=== PATIENT | female | born 1970 | race Caucasian/White ===

== ENCOUNTER 2020-09-05 14:59 | Emergency (ER) | payer OTHER ==
[2020-09-05 15:36] LABS: BASOPHILS # (AUTO) 0.1 10^3/uL (0.0-0.1); BASOPHILS % (AUTO) 0.4 %; EOSINOPHILS % (AUTO) 0.3 %; HCT - HEMATOCRIT 41.5 % (37.0-47.0); HGB - HEMOGLOBIN 14.5 g/dL (12.0-16.0); LYMPHOCYTES # (AUTO) 0.9 10^3/uL (1.5-3.5); LYMPHOCYTES % (AUTO) 7.9 %; MEAN CORPUSCULAR HEMOGLOBIN 31.7 pg (27.0-31.0); MEAN CORPUSCULAR HGB CONC 34.9 g/dL (32.0-36.0); MEAN CORPUSCULAR VOLUME 90.8 fL (81.0-99.0); MONOCYTES # (AUTO) 0.5 10^3/uL (0.0-1.0); MONOCYTES % (AUTO) 4.3 %; NEUTROPHILS # (AUTO) 10.4 10^3/uL (1.5-6.6); NEUTROPHILS % (AUTO) 86.8 %; PLT - PLATELET COUNT 309 10^3/uL (130-450); RED BLOOD COUNT 4.57 10^6/uL (4.20-5.40); RED CELL DISTRIBUTION WIDTH 11.9 % (12.0-15.0)
[2020-09-05 15:55] LABS: ALBUMIN 4.6 g/dL (3.2-5.5); ALBUMIN/GLOBULIN RATIO 1.1 (1.0-2.2); BILIRUBIN,TOTAL 0.8 mg/dL (0.2-1.0); CALCIUM 9.9 mg/dL (8.5-10.3); CREATININE 0.9 mg/dL (0.4-1.0); POTASSIUM 3.7 mmol/L (3.5-5.0); TOTAL PROTEIN 8.8 g/dL (6.7-8.2)
[2020-09-05 15:59] LABS: BILIRUBIN,URINE NEGATIVE (NEGATIVE); GLUCOSE, URINE (UA) NEGATIVE (NEGATIVE); KETONES,URINE (UA) NEGATIVE (NEGATIVE); LEUKOCYTE ESTERASE, URINE SMALL (NEGATIVE); NITRITE,URINE NEGATIVE (NEGATIVE); OCCULT BLOOD,URINE NEGATIVE (NEGATIVE); PH,URINE 7.5 PH (5.0-7.5); PROTEIN,URINE NEGATIVE (NEGATIVE); UROBILINOGEN,URINE 0.2 (NORMAL) E.U./dL (NORMAL)
[2020-09-05 16:09] LABS: CLARITY,URINE CLEAR (CLEAR)
[2020-09-05] MEDS ORDERED: fentaNYL 100 MCG/2 ML VIAL IVP STA (16:09)
[2020-09-05] MEDS ORDERED: ONDANSETRON 4 MG/2 ML VIAL IVP STA (16:10)
[2020-09-05] MEDS ORDERED: IOPAMIDOL-300 100 ML VIAL ONE (16:12)
--- NOTE | 2020-09-05 16:18 | ED Physician Documentation ---
PD HPI ABD PAIN - Stated complaint Stated Complaint: ABD PX - Chief complaint Chief Complaint: Abd Pain - History obtained from History obtained from: Patient - History of Present Illness Pain level max: 8 Pain level now: 8 Quality: Aching, Pain Location: RUQ, Epigastric, LUQ Radiation: No: Chest, , Lower back, Left flank, Left shoulder, Right flank, Right shoulder, Upper back Improved by: Other (Nothing) Worsened by: Eating Associated symptoms: Nausea. No: Fever, Vomiting, Hematemesis, Diarrhea, Constipation, Melena, Hematochezia, Dysuria - Additional information Additional information: 50-year-old female presents to the emergency department epigastric and right upper quadrant pain intermittently for the past year or so. Increasing frequency over the past week. She states normally lasts for about 2 hours. Worse with eating and drinking. Nothing makes it better. She states that she has not had any diarrhea or constipation. She states that she believes that she may have had a parasitic infection in her intestine several years ago, but was not tested or treated. She is concerned this could be causing an issue as well. No fevers. No chills. No history of abdominal surgeries. Review of Systems Ten Systems: 10 systems reviewed and negative Constitutional: denies: Fever, Chills Throat: denies: Sore throat Cardiac: denies: Chest pain / pressure, Palpitations Respiratory: denies: Cough GI: denies: Vomiting, Hematemesis, Bloody / black stool : denies: Dysuria Skin: denies: Rash Musculoskeletal: denies: Neck pain, Back pain Neurologic: denies: Headache PD PAST MEDICAL HISTORY - Past Medical History Past Medical History: No - Past Surgical History Past Surgical History: No - Present Medications Home Medications: Ambulatory Orders Medication Instructions Recorded Confirmed Ondansetron Odt [Zofran] 4 mg TL Q6H PRN #10 tablet 09/05/20 Oxycodone HCl/Acetaminophen 1 - 2 each PO Q6H PRN #14 tablet 09/05/20 [Percocet 5-325 mg Tablet] - Allergies Allergies/Adverse Reactions: Allergies Allergy/AdvReac Type Severity Reaction Status Date / Time No Known Drug Allergies Allergy Verified 09/05/20 15:13 - Living Situation Living Situation: reports: With family Living Arrangement: reports: At home - Social History Does the pt smoke?: No Does the pt drink ETOH?: No Does the pt have substance abuse?: No PD ED PE NORMAL - Vitals Vital signs reviewed: Yes - General General: Alert and oriented X 3, No acute distress, Well developed/nourished - HEENT HEENT: PERRL, Moist mucous membranes - Neck Neck: Supple, no meningeal sign - Cardiac Cardiac: RRR, Strong equal pulses - Respiratory Respiratory: No respiratory distress, Clear bilaterally - Abdomen Abdomen: Soft, Non distended, Other (Tender to palpation epigastric, left upper quadrant and right upper quadrant. Negative Aguayo sign) - Back Back: No CVA TTP - Derm Derm: Warm and dry - Extremities Extremities: No edema - Neuro Neuro: Alert and oriented X 3 - Psych Psych: Normal mood, Normal affect Results - Vitals Vitals: Vital Signs - 24 hr 09/05/20 09/05/20 09/05/20 15:06 17:19 17:30 Temperature 36.6 C Heart Rate 95 72 76 Respiratory 22 16 16 Rate Blood Pressure 131/82 H 123/82 H 113/74 O2 Saturation 100 100 100 09/05/20 09/05/20 18:00 18:30 Temperature Heart Rate 76 73 Respiratory 16 Rate Blood Pressure 112/80 111/83 H O2 Saturation 99 Oxygen O2 Source Room air - Labs Labs: Laboratory Tests 09/05/20 09/05/20 09/05/20 15:29 15:29 15:29 WBC 12.0 H RBC 4.57 Hgb 14.5 Hct 41.5 MCV 90.8 MCH 31.7 H MCHC 34.9 RDW 11.9 L Plt Count 309 MPV 10.0 Neut # (Auto) 10.4 H Lymph # (Auto) 0.9 L [place] # (Auto) 0.5 Eos # (Auto) 0.0 Baso # (Auto) 0.1 Absolute Nucleated RBC 0.00 Nucleated RBC % 0.0 Sodium 140 Potassium 3.7 Chloride 104 Carbon Dioxide 27 Anion Gap 9.0 BUN 15 Creatinine 0.9 Estimated GFR (MDRD) 67 L Glucose 129 H Calcium 9.9 Total Bilirubin 0.8 AST 400 H ALT 238 H Alkaline Phosphatase 143 H Total Protein 8.8 H Albumin 4.6 Globulin 4.2 Albumin/Globulin Ratio 1.1 Lipase 32 Urine Color YELLOW Urine Clarity CLEAR Urine pH 7.5 Ur Specific Garner <=1.005 Urine Protein NEGATIVE Urine Glucose (UA) NEGATIVE Urine Ketones NEGATIVE Urine Occult Blood NEGATIVE Urine Nitrite NEGATIVE Urine Bilirubin NEGATIVE Urine Urobilinogen 0.2 (NORMAL) Ur Leukocyte Esterase SMALL H Urine RBC 0-5 Urine WBC 4-5 Ur Squamous Epith Cells MOD Squamous H Urine Bacteria None Seen Ur Microscopic Review INDICATED Urine Culture Comments NOT INDICATED - Rads (name of study) CT abd/pelvis Radiology: Prelim report reviewed, EMP read contemporaneously, See rad report RUQ US Radiology: Prelim report reviewed, EMP read contemporaneously, See rad report PD MEDICAL DECISION MAKING - ED course Complexity details: reviewed results, re-evaluated patient, considered differential, d/w patient ED course: 50-year-old female with cholelithiasis, but no signs of acute cholecystitis. Mild elevation of her LFTs. Discussed the case with Dr. Dixon, general surgery on-call, recommends pain control and follow-up in the office on Tuesday for likely surgery next Tuesday. Patient is comfortable with this plan and does not want to go to surgery tonight. She is comfortable going home. Abdomen is soft, minimally tender on serial exam. Tolerating p.o. without difficulty. Pain well controlled. No fever. Patient was counseled at length about return precautions including but not limited to uncontrolled pain, vomiting and/or fever. Patient counseled regarding signs and symptoms for which I believe and urgent re- evaluation would be necessary. Patient with good understanding of and agreement to plan and is comfortable going home at this time This document was made in part using voice recognition software. While efforts are made to proofread this document, sound alike and grammatical errors may occur. CT SCAN IMPRESSION: Cholelithiasis. Tiny fat-containing helical hernia. Diastasis rectus. RUQ US: Cholelithiasis without signs of acute cholecystitis. Departure - Departure Disposition: Home, Self Care Clinical Impression: Biliary colic Condition: Good Instructions: ED Gallstone W Biliary Colic Follow-Up: TROY MEYER ARNP [Primary Care Provider] - Justino Dixon MD [Provider Admit Priv/Credential] - Prescriptions: Oxycodone HCl/Acetaminophen [Percocet 5-325 mg Tablet] 1 - 2 each PO Q6H PRN #14 tablet PRN Reason: pain Ondansetron Odt [Zofran] 4 mg TL Q6H PRN #10 tablet PRN Reason: Nausea / Vomiting Comments: I spoke with Dr. Dixon and reviewed all of your imaging findings today. He feels that you are safe to go home at this time. You are to return to the emergency department if your symptoms worsen, such as increasing pain, vomiting or fevers. Call your doctor on Tuesday and have them send a referral to Dr. Dixon office. He can see you on Tuesday and likely schedule the surgery for Tuesday. Eat a very low-fat diet. This will likely help your symptoms as well. Do not drink alcohol or drive while on narcotic pain medicine. Note that many narcotic pain relievers also contain tylenol/acetaminophen. Please ensure that your total dose of acetaminophen from all sources does not exceed 3 grams (3000mg) per day. You may constipated on this medication, take a stool softener such as "Colace" twice a day while you are on it. Also recommend a [id number]-[id number] laxative such as senna or MiraLAX any day that you do not have a bowel movement. If you received narcotic pain medication in the emergency department, do not drive or operate machinery for the next 24 hours. Discharge Date/Time: 09/05/20 18:50
[2020-09-05 16:22] LABS: BACTERIA,URINE None Seen /HPF (None Seen); RBC,URINE 0-5 /HPF (0-5); SQUAMOUS EPITHELIAL CELL,UR MOD Squamous (<= Few)
[2020-09-05] MEDS ORDERED: IOPAMIDOL-300 100 ML VIAL IVP ONE (16:34)
--- NOTE | 2020-09-05 16:43 | CT Report ---
PROCEDURE: Abdomen/Pelvis W INDICATIONS: Diffuse abdominal pain CONTRAST: IV CONTRAST: Isovue 300 ml: 100 PO CONTRAST: *NO PO CONTRAST TECHNIQUE: After the administration of intravenous contrast, 5 mm thick sections acquired from the diaphragms t o the symphysis. 5 mm thick coronal and sagittal reformats were acquired. For radiation dose reduct ion, the following was used: automated exposure control, adjustment of mA and/or kV according to pat ient size. COMPARISON: None. FINDINGS: Image quality: Excellent. ABDOMEN: Lung bases: Lung bases are clear. Heart size is normal. Solid organs: Normal appearance of the liver, spleen, pancreas, adrenal glands, and kidneys. Gallblad gilda contains numerous partially calcified gallstones (approximately 7-10). No gallbladder wall thick ening or pericholecystic fluid. No biliary tract ductal dilatation. Normal caliber pancreatic duct. Peritoneum and bowel: Bowel loops demonstrate normal wall thickness and caliber. No free fluid or a ir. Nodes and vessels: No retroperitoneal or mesenteric adenopathy by size criteria. Aorta and inferior vena cava are normal in size. Miscellaneous: Tiny fat-containing umbilical hernia. Diastasis rectus above the level of the umbilicu s, with the medial margins of the mid rectus abdominis muscle bellies by approximately 2.5 cm. PELVIS: Genitourinary: Bladder wall thickness is normal. Miscellaneous: No inguinal hernias or adenopathy. Bones: No suspicious bony lesions. No vertebral body compression fractures. IMPRESSION: Cholelithiasis. Tiny fat-containing helical hernia. Diastasis rectus. Reviewed by: Darren Dozier MD on 09/05/2020 4:41 PM PDT Approved by: Darren Dozier MD on 09/05/2020 4:41 PM PDT Station ID: [id number]
[2020-09-05] MEDS ORDERED: LORazepam 2 MG/ML VIAL IVP STA (17:53)
--- NOTE | 2020-09-05 18:41 | Ultrasound Report ---
PROCEDURE: Abdomen Limited INDICATIONS: RUQ pain, elevated LFT TECHNIQUE: Real-time focused scanning was performed of the abdomen, with image documentation. COMPARISON: CT abdomen/pelvis 09/05/2020. FINDINGS: Liver: Liver is normal in size and echogenicity. Gallbladder: Multiple shadowing gallstones are seen throughout the gallbladder. There is no significa nt gallbladder wall thickening. No pericholecystic fluid is seen. Sonographic Aguayo sign is negative . Biliary ducts: Intrahepatic bile ducts are non-dilated. Extrahepatic bile duct caliber measures 4 m m. Normal is 6-7 mm or less in diameter, or 10 mm or less post-cholecystectomy. Pancreas: The pancreas is not well-visualized due to overlying bowel gas. Kidneys: Kidneys are normal in size and echotexture. Right kidney measures 12.7 cm long. No nephrol ithiasis. Mildly prominent extrarenal pelvis is seen within the calyceal diverticulum ablation, most likely a normal variant. No solid masses. IVC: Intrahepatic inferior vena cava is patent. Miscellaneous: No free right upper quadrant fluid. IMPRESSION: Cholelithiasis without signs of acute cholecystitis. Findings were conveyed to the ordering physician, Dr. Urias, by the truck greaser at the time of the e xam. Reviewed by: Michael Nixon MD on 09/05/2020 6:40 PM PDT Approved by: Michael Nixon MD on 09/05/2020 6:40 PM PDT Station ID: [id number]
[2020-09-05 18:53] VITALS: BP 111/83
== END 2020-09-05 18:50 | disposition home or self-care (01) ==
LOC: ED 14:59
DX: K80.20 Calculus of gallbladder without cholecystitis without obstruction (principal); K42.9 Umbilical hernia without obstruction or gangrene; R74.8 Abnormal levels of other serum enzymes
CPT/HCPCS: 36415; 74177; 76705; 80053; 81001; 83690; 85025; 96374; 96375; 99284; J2060; Q9967; 81003; 87086; 87177; 87209

== ENCOUNTER 2020-09-10 16:57 | Outpatient (CLI) | payer OTHER ==
[2020-09-10 17:25] LABS: ALBUMIN 4.5 g/dL (3.2-5.5); ALBUMIN/GLOBULIN RATIO 1.2 (1.0-2.2); BILIRUBIN,TOTAL 0.5 mg/dL (0.2-1.0); CREATININE 0.9 mg/dL (0.4-1.0); POTASSIUM 3.9 mmol/L (3.5-5.0); TOTAL PROTEIN 8.2 g/dL (6.7-8.2)
== END 2020-09-10 16:58 | disposition home or self-care (01) ==
LOC: LAB 16:57
PROVIDERS: ATTEND Surgery
DX: K80.20 Calculus of gallbladder without cholecystitis without obstruction (principal)
CPT/HCPCS: 36415; 80053

== ENCOUNTER 2020-09-12 07:00 | Outpatient (CLI) | payer OTHER | END 2020-09-12 23:59 | disposition home or self-care (01) | LOC: COV 07:00 | PROVIDERS: ATTEND Surgery | DX: Z01.812 Encounter for preprocedural laboratory examination (principal); K81.1 Chronic cholecystitis; Z20.822 Contact with and (suspected) exposure to COVID-19 ==

== ENCOUNTER 2020-09-16 08:01 | Day surgery (SDC) | payer OTHER ==
[~2020-09-16 08:01] MED LIST: ceFAZolin 2 GM/50 ML 2 GM/50 ML BAG IV ONE
[2020-09-16] MEDS ORDERED: SCOPOLAMINE PATCH TOP ONE (08:58)
[2020-09-16] MEDS ORDERED: SCOPOLAMINE PATCH TOP SCH (09:00)
[2020-09-16] MEDS ORDERED: MIDAZOLAM 2 MG/2 ML VIAL ONE (09:01)
[2020-09-16] MEDS ORDERED: BUPIVACAINE 0.25% PF 30 ML VIAL ONE (09:01)
[2020-09-16] MEDS ORDERED: LIDOCAINE-MPF 2% 5 ML VIAL ONE (09:01)
[2020-09-16] MEDS ORDERED: IOTHALAMATE MEGLUMINE 50 ML VIAL ONE (09:01)
[2020-09-16] MEDS ORDERED: PROPOFOL 200 MG/20 ML VIAL IVP ONE (09:01)
[2020-09-16] MEDS ORDERED: ROCURONIUM 50 MG/5 ML VIAL ONE (09:02)
[2020-09-16] MEDS ORDERED: fentaNYL 100 MCG/2 ML VIAL ONE ×2 (09:03→10:25)
[2020-09-16] MEDS ORDERED: BUPIVACAINE 0.25% PF 30 ML VIAL SUBQ ONE ×2 (09:14→11:33)
[2020-09-16] MEDS ORDERED: IOTHALAMATE MEGLUMINE 50 ML VIAL IVP ONE ×2 (09:14→11:34)
[2020-09-16] MEDS ORDERED: LACTATED RINGERS 1,000 ML IV ONE ×2 (09:25→11:51)
[2020-09-16] MEDS ORDERED: ONDANSETRON 4 MG/2 ML VIAL ONE ×2 (10:11→12:07)
[2020-09-16] MEDS ORDERED: DEXAMETHASONE 4 MG/ML VIAL ONE (10:11)
[2020-09-16] MEDS ORDERED: ACETAMINOPHEN 1,000 MG/100 ML 100 ML IV ONE (10:15)
[2020-09-16] MEDS ORDERED: NEOSTIGMINE 1 MG/1 ML 10 ML MDV ONE (10:26)
[2020-09-16] MEDS ORDERED: GLYCOPYRROLATE 1 MG/5 ML VIAL ONE (11:31)
--- NOTE | 2020-09-16 11:40 | XRAY Report ---
PROCEDURE: OR Cholangiogram INDICATIONS: Intraoperative fluoroscopic support for laparoscopic cholecystectomy. COMPARISON: Abdominal ultrasound dated 09/05/2020 CONTRAST: CONTRAST: Conray FINDINGS: Biliary ducts: The surgeon injected contrast into the biliary ducts after cannulation of the cystic duct stump. Visualized intra- and extrahepatic bile ducts are normal in caliber, without strictures. No intraluminal filling defects to suggest retained ductal stones or sludge. No evidence for iatro genic ductal injury. Duodenum: Contrast opacifies the duodenum. IMPRESSION: Intraoperative fluoroscopic support for laparoscopic cholecystectomy. No fluoroscopic evidence to sug gest strictures or intraluminal filling defects within the visualized intrahepatic and extrahepatic b iliary ducts. Reviewed by: Brian Zheng MD on 09/16/2020 10:38 AM AKSHAT Approved by: Brian Zheng MD on 09/16/2020 10:38 AM AKSHAT Station ID: [id number]
--- NOTE | 2020-09-16 12:11 | OPERATIVE REPORT ---
Operative Report - General Procedure Date: 09/16/20 Planned Procedure: lap jaylen with cholangiogram Pre-Op Diagnosis: chronic cholecystitis and hx choledocholithiasis Procedure Performed: lap jaylen with cholangiogram Post Op Diagnosis: same/ nl cbd - Procedure Note Primary Surgeon: kezia gorman md Secondary Surgeon: sharon Anesthesia Technique: General ET tube, Local Pathology: gb Estimated Blood Loss (mL): 20 Drain/Tube Type: Other (none) Findings: nl cholangiogram chronic cholecystitits Complications: none
[2020-09-16] MEDS ORDERED: oxyCODONE 5 MG TABLET PO PRN (12:12)
[2020-09-16] MEDS ORDERED: ONDANSETRON 4 MG/2 ML VIAL IVP PRN ×2 (12:12→12:15)
[2020-09-16] MEDS ORDERED: fentaNYL 100 MCG/2 ML VIAL IVP PRN (12:15)
[2020-09-16] MEDS ORDERED: ATROPINE ABBOJECT 1 MG/10 ML SYRINGE IVP PRN (12:15)
[2020-09-16] MEDS ORDERED: NALOXONE 0.4 MG/ML VIAL IVP PRN (12:15)
[2020-09-16] MEDS ORDERED: ePHEDrine 50 MG/ML VIAL IVP PRN (12:15)
[2020-09-16] MEDS ORDERED: METOCLOPRAMIDE 10 MG/2 ML VIAL IVP PRN (12:15)
[2020-09-16] MEDS ORDERED: HYDROmorphone 0.5 MG/0.5 ML SYRINGE IVP PRN (12:15)
[2020-09-16] MEDS ORDERED: MORPHINE 2 MG/ML CARPUJECT IVP PRN (12:15)
[2020-09-16] MEDS ORDERED: LACTATED RINGERS 1,000 ML IV SCH (13:00)
[2020-09-16] MEDS ORDERED: LORazepam 2 MG/ML VIAL IVP ONE (13:04)
--- NOTE | 2020-09-16 13:04 | ANESTHESIA POST OP EVALUATION ---
Anesthesia Post Eval - Post Anesthesia Eval Vitals: Last Vital Signs Temp 36.3 C L 09/16/20 12:40 Pulse 79 09/16/20 12:47 Resp 21 09/16/20 12:47 BP 118/74 09/16/20 12:47 Pulse Ox 99 09/16/20 12:47 CV Function Including HR & BP: Stable Pain Control: Satisfactory Nausea & Vomiting: Addtional Therapies Ordered (ativan for anxiety) Mental Status: Baseline Respiratory Status: Airway Patent Hydration Status: Satisfactory Anesthesia Complications: None
[2020-09-16] MEDS ORDERED: LORazepam 2 MG/ML VIAL ONE (13:26)
--- NOTE | 2020-09-16 13:36 | OPERATIVE REPORT ---
DATE OF SERVICE: 09/16/2020 Physician: Justino Dixon MD PREOPERATIVE DIAGNOSES: Chronic cholecystitis and history of choledocholithiasis. POSTOPERATIVE DIAGNOSES: Chronic cholecystitis and history of choledocholithiasis. PROCEDURE PERFORMED 1. Laparoscopic cholecystectomy. 2. Cholangiogram. 3. Fluoroscopic interpretation. SURGEON: Justino Dixon MD MATERIAL EXPEDITOR: None. ANESTHESIA 1. General endotracheal anesthesia. 2. Local anesthesia with Marcaine. COMPLICATIONS: None. SPECIMENS: Gallbladder. ESTIMATED BLOOD LOSS: 20 mL DRAINS: None. FINDINGS: Healthy-appearing liver and normal intraoperative cholangiogram. INDICATIONS FOR PROCEDURE: The patient is a healthy 50-year-old with biliary colic, chronic cholecys titis-type symptoms for many months, if not years. Recently, she had a significant attack, was seen and evaluated and found to have elevated liver enzymes. Her liver enzymes have improved, however not normalized prior to surgery. She presents for laparoscopic cholecystectomy with cholangiogram. Ris ks discussed, alternatives discussed, all questions answered and consent obtained. DETAILS OF PROCEDURE: The patient was properly identified and brought to the operating room and plac ed in supine position. She voided prior to surgery. General endotracheal anesthesia was induced. S equential compression devices were placed. She was prepped and draped in a sterile fashion and given preoperative antibiotics. Local anesthetic was given to incision areas. An infraumbilical incision was made. Dissection proceeded down to the fascia. The fascia was incised, lifted upwards and abdo men entered with the Veress needle. CO2 was insufflated to a pressure of 15. An 11 mm trocar follow ed by a 30-degree scope was placed. There was no evidence of injury from Veress needle or trocar radha cement. Under direct vision, two 5 mm trocars were placed in the right upper quadrant and a 10 mm tr ocar was placed in the epigastrium. Body of the gallbladder was retracted anterior. Lateral attachm ents were partially taken down, further mobilizing the gallbladder more anterior and away from the co mmon bile duct, which was easily evident without dissection. Her gallbladder was elongated with a wa ist and had significant adhesions. Omentum was carefully peeled away. The gallbladder was further m obilized away from the common hepatic and common bile duct. The infundibulum was then retracted righ t lateral and caudad. A large bare cystic plate area or window was eventually developed with minimal use of cautery. She had a short anterior cystic artery, which was clipped at the gallbladder and tw ice more proximal and sharply divided. This allowed for creation of a much larger window. The cysti c duct and posterior cystic artery branch were clipped at the gallbladder. The cystic duct was then partially opened and cholangiogram performed. Result is normal. The cystic duct was then further cl ipped 3 times more proximal and the posterior cystic artery branch was clipped twice more proximal an d both sharply divided. The gallbladder was mobilized off from the bed of the liver without spillage of bile or stone material. The abdomen was thoroughly irrigated. Clips were secured and hemostasis was assured. Trocars were removed under direct vision and CO2 evacuated. Fascia and epigastrium wa s closed with a [id number] 0 Vicryl. Fascia at the infraumbilical site was closed with a runnin g 0 Vicryl. Skin was closed with buried interrupted or running 4-0 Monocryl subcuticular suture. Gi rachel her ADHESIVE ALLERGY, Histoacryl glue was used as a dressing. TD: 09/16/2020 13:35
--- NOTE | 2020-09-16 14:12 | ANESTHESIA POST OP EVALUATION ---
Anesthesia Post Eval - Post Anesthesia Eval Vitals: Last Vital Signs Temp 36. C L 09/16/20 13:54 Pulse 77 09/16/20 13:54 Resp 16 09/16/20 13:54 BP 123/98 H 09/16/20 13:54 Pulse Ox 100 09/16/20 13:54 Nausea & Vomiting: Addtional Therapies Ordered
[2020-09-16 19:37] VITALS: BP 115/77
== END 2020-09-16 20:50 | disposition home or self-care (01) ==
LOC: SDS 08:01 → MS2 14:30 → SDS 20:50
PROVIDERS: ATTEND Surgery
PROC: 0FT44ZZ Resection of Gallbladder, Percutaneous Endoscopic Approach (ICD-10-PCS; principal; 2020-09-16 09:15)
DX: K80.10 Calculus of gallbladder with chronic cholecystitis without obstruction (principal)
CPT/HCPCS: 47563; 74300; A9270; J0131; J0690; J2060; J2765; J3490; J7120; Q9961